=== PATIENT | male | born 1930 | race Caucasian/White ===

== ENCOUNTER 2017-01-31 09:47 | Emergency (ER) | payer MEDICARE, BC ==
[~2017-01-31] VITALS: Ht 188 cm; Wt 92.2 kg
[~2017-01-31 09:47] MED LIST: COUM5TAB; SIMV5TAB32
[2017-01-31 09:51] VITALS: BP 160/89; PULSE 90; RESP 18; TEMP 97.7; O2SAT 98
[2017-01-31] MEDS ORDERED: DORZ2SOL15 EACH EYE (10:04)
[2017-01-31] MEDS ORDERED: WARF4TAB52 PO (10:04)
[2017-01-31] MEDS ORDERED: GABA100C4 PO (10:04)
--- NOTE | 2017-01-31 10:32 | PD ---
HPI Chief Complaint: ENT Complaint Time Seen by Provider: 10:01 Travel History International Travel<30 days: No Contact w/Intl Traveler<30days: No Traveled to known affect area: No History of Present Illness HPI 86-year-old male with history of trigeminal neuralgia status post surgical procedure in 1994, DVT/PE on Coumadin, here for evaluation of crackling noise in his left ear with intermittent loud noises. Symptoms have been going on for last 10 days. The patient is concerned that he may be having a stroke. He denies paresthesias or motor deficits. History of glaucoma with corrective surgery in the right eye, however he denies any recent visual changes. No headache. No ear pain. Slight decrease in hearing in the left ear. He does not take aspirin. No dizziness. PFSH Past Medical History Hx Anticoagulant Therapy: Yes (coumadin/ dvt) High Cholesterol: Yes Diminished Hearing: No Deep Vein Thrombosis: Yes Medical other: Yes (TRIGEMINAL NEURALGIA) Social History Alcohol Use: Yes (1 DRINK PER WEEK) Tobacco Use: No Substance Use: No Allergies-Medications (Allergen,Severity, Reaction): Coded Allergies: No Known Allergies (Verified , 01/31/17) Reported Meds & Prescriptions Reported Meds & Active Scripts Active Reported Dorzolamide-Timolol Opth Drops 22.3-6.8 Mg/Ml Soln 1 Drop EACH EYE BID Gabapentin 100 Mg Cap Unknown Dose PO BID Warfarin 1 Mg Tab Unknown Dose PO DAILY Review of Systems Except as stated in HPI: all other systems reviewed are Neg Physical Exam Narrative GENERAL: Pleasant, well-developed, well-nourished, comfortable, no acute distress. SKIN: Focused skin assessment warm/dry. HEAD: Atraumatic. Normocephalic. ENT: Mucous membranes pink and moist. Bilateral tympanic membranes and external auditory canals are normal. NECK: Trachea midline. No JVD. CARDIOVASCULAR: Regular rate and rhythm. RESPIRATORY: No accessory muscle use. Clear to auscultation. Breath sounds equal bilaterally. MUSCULOSKELETAL: No obvious deformities. No clubbing. No cyanosis. No edema. NEUROLOGICAL: Awake and alert. No obvious cranial nerve deficits. Motor grossly within normal limits. Normal speech. No focal deficits. PSYCHIATRIC: Appropriate mood and affect; insight and judgment normal. Data Data Last Documented VS Vital Signs Date Time Temp Pulse Resp B/P Pulse Ox O2 Delivery O2 Flow Rate FiO2 01/31/17 12:01 68 20 146/76 97 01/31/17 09:[address] Brain W/O Iv Contrast(Rout) (01/31/17 ) MDM Medical Decision Making Medical Screen Exam Complete: Yes Emergency Medical Condition: Yes Medical Record Reviewed: Yes Differential Diagnosis Tinnitus, intracranial abnormality Narrative Course Vital signs reviewed. CT head: Aging brain with generalized volume loss. No evidence of acute infarct, hemorrhage, intra-axial mass or edema. Small calcified dural based mass in the left cerebellar pontine angle cistern representing either dural calcification or small residual meningioma. Left- sided suboccipital craniotomy defect is noted. No significant mass effect on the adjacent brainstem is noted. Case discussed with on-call neurosurgeon Dr. Lemons who states the patient can follow-up with him as an outpatient and he will likely order an outpatient MRI for the patient. He would also like the patient follow-up with ENT. Patient was provided a copy of the CT head report, and all questions were answered. He will be given the information to follow-up with Dr. Lemons as well as ENT habilitation specialist. He was informed on when to return to the emergency department. He verbalizes understanding and agreement with plan. Diagnosis Primary Impression: Tinnitus Qualified Code: H93.12 - Tinnitus, left Additional Impression: Intracranial mass Referrals: Bruce Lemons MD 3 days Neurosurgeon Brian Hernandez MD 3 days ENT Additional Instructions: Follow-up with neurosurgeon Dr. Lemons or a neurosurgeon of your choice this week. Follow-up with ENT Dr. Hernandez or an ENT of your choice this week. Return to the emergency department for worsening symptoms or any other concerns. Disposition: 01 DISCHARGE HOME Condition: Stable Carlos Montero MD January 31, 2017 10:32
--- NOTE | 2017-01-31 11:40 | RADHPO ---
EXAM DATE/TIME: 01/31/2017 11:07 [facility] COMPARISON: No previous studies available for comparison. INDICATIONS : Cephalgia. Crackling noise in left ear. RADIATION DOSE: 63.94 CTDIvol (mGy) MEDICAL HISTORY : Deep venous thrombosis. Trigeminal neuralgia. SURGICAL HISTORY : Trigeminal neuralgia surgery. ENCOUNTER: Initial ACUITY: 1 week PAIN SCALE: 2/10 LOCATION: Left cranial TECHNIQUE: Multiple contiguous axial images were obtained of the head. Using automated exposure control and adj ustment of the mA and/or kV according to patient size, radiation dose was kept as low as reasonably a chievable to obtain optimal diagnostic quality images. FINDINGS: CEREBRUM: The CSF spaces are mildly to moderately enlarged.. No evidence of midline shift, mass lesion, hemorr madyson or acute infarction. No extra-axial fluid collections are seen. POSTERIOR FOSSA: A small calcified mass is identified in the left cerebellar pontine angle cistern. It measures approx imately 10 x 6.7 mm. There is no significant mass effect. It does not involve the internal auditory canal. A left roche b-occipital craniotomy defect is noted. The cerebellum and brainstem are intact. The 4th ventricle i s midline. EXTRACRANIAL: The visualized portion of the orbits is intact. SKULL: The calvaria is intact. No evidence of skull fracture. CONCLUSION: Aging brain with generalized volume loss. No evidence of acute infarct, hemorrhage, intra-axial mass or edema. Small calcified dural based mass in the left cerebellar pontine angle cistern representing either dur al calcification or small residual meningioma. Left-sided suboccipital craniotomy defect is noted. No significant mass effect on the adjacent brainstem is noted. Tony Ansari MD on January 31, 2017 at 11:33 Board Certified Radiologist. This report was verified electronically.
[2017-01-31 12:01] VITALS: BP 146/76; PULSE 68; RESP 20; O2SAT 97
== END 2017-01-31 12:38 | disposition home or self-care (01) ==
LOC: PHED 09:47
DX: H93.12 Tinnitus, left ear (principal); R93.8 Abnormal findings on diagnostic imaging of other specified body structures; E78.00 Pure hypercholesterolemia, unspecified; Z79.01 Long term (current) use of anticoagulants; Z86.69 Personal history of other diseases of the nervous system and sense organs; Z86.718 Personal history of other venous thrombosis and embolism; Z86.711 Personal history of pulmonary embolism
CPT/HCPCS: 70450